=== PATIENT | male | born 1960 | race Caucasian/White ===

== ENCOUNTER → 2017-09-27 13:11 | Outpatient (CLI) | payer BC, SELFPAY ==
--- NOTE | 2017-09-27 13:18 | XR_ITS ---
XR chest 2V COMPARISON: None HISTORY: Cough suspect pneumonia TECHNIQUE: PA and lateral chest FINDINGS: The lung bhardwaj are well expanded and appear clear of infiltrate. There is borderline cardio megaly without failure. Is no pleural fluid. IMPRESSION: Borderline cardio megaly, no acute chest pathology noted
== END ==
PROVIDERS: PCP Internal Medicine Adolescent Medicine; Visit Provider Internal Medicine Adolescent Medicine
DX: J18.0 Bronchopneumonia, unspecified organism (principal)
CPT/HCPCS: 71046

== ENCOUNTER → 2018-08-02 13:32 | Outpatient (CLI) | payer BC, SELFPAY ==
--- NOTE | 2018-08-02 | NVE_ITS ---
Venous Exam Indications: 729.5 Pain in limb. Patient had a TIA several years ago and has taken Aggrenox since daily. IMPRESSIONS No evidence of deep or superficial vein thrombosis involving the left lower extremity History: Risk factors: Hypertension. Obese. Left lower extremity venous duplex evaluation. Doppler flow study including spectral analysis, color and conteh scale imaging. Location: Vascular laboratory. Patient status: Outpatient. CRITICAL FINDINGS - Reported to: Dr. Riojas - Read back and verified. - 08/02/18 - 14:05 - LLE negative for DVT Tables: Venous flow and imaging: + +-------+ + Location Overall Flow properties + +-------+ + Left common femoral Patent Normal phasicity; spontaneous; normal augmentation; compressible + +-------+ + Left saphenofemoral junction Patent Compressible + +-------+ + Left profunda femoral Patent Compressible + +-------+ + Left femoral Patent Normal phasicity; spontaneous; normal augmentation; compressible + +-------+ + Left greater saphenous Patent Normal phasicity; spontaneous; normal augmentation; compressible + +-------+ + Left popliteal Patent Normal phasicity; spontaneous; normal augmentation; compressible + +-------+ + Left posterior tibial Patent Compressible + +-------+ + Left peroneal Patent Compressible + +-------+ + Left gastrocnemius Patent Compressible + +-------+ + Left soleal Patent Compressible + +-------+ + (Report amended ) Electronically signed by: Skyler Nguyễn [id number]
== END ==
PROVIDERS: PCP Internal Medicine Adolescent Medicine; Visit Provider Internal Medicine Adolescent Medicine
DX: M79.605 Pain in left leg (principal)
CPT/HCPCS: 93971

== ENCOUNTER → 2020-06-25 09:52 | Outpatient (CLI) | payer BC, SELFPAY ==
[2020-06-25 10:33] LABS: Basophils % 0.5 % (0.1-2.0); Eosinophils # 0.1 K/mm3 (0.0-0.4); Eosinophils % 1.3 % (0.1-12.0); Hematocrit 48.3 % (42.0-52.0); Hemoglobin 16.4 g/dL (14.1-18.0); Lymphocytes # 2.9 K/mm3 (0.7-4.5); Lymphocytes % 45.7 % (10-50); Mean Corpuscular HGB Conc 33.9 g/dL (31.8-35.4); Mean Corpuscular Hemoglobin 32.7 pg (27.0-31.2); Mean Corpuscular Volume 96.3 fl (80-94); Mean Platelet Volume 7.7 fl (7.4-10.4); Monocytes # 0.4 K/mm3 (0.1-1.0); Monocytes % 6.1 % (1.7-9.3); Neutrophils # 2.9 K/mm3 (1.8-7.8); Neutrophils % 46.4 % (37.0-80.0); Platelet Count 243 K/mm3 (142-424); Red Blood Count 5.02 M/mm3 (4.60-6.20); Red Cell Distribution Width 13.7 % (11.5-17.5); White Blood Count 6.3 K/mm3 (4.8-10.8)
[2020-06-25 12:03] LABS: Alanine Aminotransferase 43 U/L (12-78); Albumin Level 4.4 g/dl (3.5-5.0); Albumin/Globulin Ratio 1.8 (1.1-1.8); Alkaline Phosphatase 46 U/L (38-126); Anion Gap 9.5 mEq/L (5-15); Aspartate Amino Transferase 27 U/L (17-59); Bilirubin,Total 1.2 mg/dl (0.2-1.3); Blood Urea Nitrogen 20 mg/dl (9-20); Calcium 11.2 mg/dl (8.4-10.2); Carbon Dioxide 33 mmol/L (22.0-30.0); Chloride 102 mmol/L (98-107); Estimated Glomerular Filt Rate 62 ml/min (>60); GFR (African American) 75 ML/MIN (>60); Globulin 2.4 g/dL (1.3-3.2); Glucose 67 mg/dl (74-100); Potassium 4.5 mmoL/L (3.5-5.1); Sodium 140 mmol/L (136-145); Total Protein,Serum 6.8 g/dl (6.3-8.2)
[2020-06-25 12:16] LABS: Intact Parathyroid Hormone 106.9 pg/mL (7.5-53.5)
[2020-06-27 14:35] LABS: Calcium, Ionized 6.3 mg/dL (4.5-5.6)
== END ==
PROVIDERS: Visit Provider Internal Medicine Adolescent Medicine
DX: E83.52 Hypercalcemia (principal)
CPT/HCPCS: 36415; 80053; 82330; 83970; 85025

== ENCOUNTER → 2020-07-10 09:26 | Outpatient (CLI) | payer BC, SELFPAY ==
--- NOTE | 2020-07-10 09:32 | XR_ITS ---
PROCEDURE: XR DEXA AXIAL SKELETON CLINICAL HISTORY: HYPERPARATHYROIDISM COMPARISON: No exams were available for comparison FINDINGS: The right hip BMD is 0.913 with a T-score of -0.1. The left hip BMD is 0.929 with a T-score of 0.0. The lumbar spine BMD is 1.127 with a T-score of 0.3. The left forearm BMD is 0.806 with a T-score of -0.2 IMPRESSION: This patient is considered normal according to the World Health Organization criteria. Fracture risk is low. Based on these results a follow-up exam is recommended in 2 year. Dictated by: Skyler Nguyễn MD 07/10/2020 20:19 Skyler Nguyễn MD in [facility] 07/11/2020 07:24
== END ==
PROVIDERS: PCP Internal Medicine Adolescent Medicine; Visit Provider Internal Medicine Adolescent Medicine
DX: E21.3 Hyperparathyroidism, unspecified (principal)
CPT/HCPCS: 77080

== ENCOUNTER → 2020-08-18 20:11 | Outpatient (CLI) | payer BC, SELFPAY ==
[2020-08-18 20:21] LABS: Basophils % 0.7 % (0.1-2.0); Eosinophils # 0.1 K/mm3 (0.0-0.4); Eosinophils % 1.6 % (0.1-12.0); Hematocrit 50.5 % (42.0-52.0); Hemoglobin 16.3 g/dL (14.1-18.0); Lymphocytes # 2.5 K/mm3 (0.7-4.5); Lymphocytes % 49.9 % (10-50); Mean Corpuscular HGB Conc 32.3 g/dL (31.8-35.4); Mean Corpuscular Hemoglobin 31.3 pg (27.0-31.2); Mean Corpuscular Volume 96.9 fl (80-94); Mean Platelet Volume 9.9 fl (7.4-10.4); Monocytes # 0.3 K/mm3 (0.1-1.0); Monocytes % 5.4 % (1.7-9.3); Neutrophils # 2.1 K/mm3 (1.8-7.8); Neutrophils % 42.4 % (37.0-80.0); Platelet Count 275 K/mm3 (142-424); Red Blood Count 5.21 M/mm3 (4.60-6.20); Red Cell Distribution Width 13.2 % (11.5-17.5)
[2020-08-18 22:05] LABS: Chloride 103 mmol/L (98-107); Potassium 4.7 mmoL/L (3.5-5.1); Sodium 141 mmol/L (136-145)
[2020-08-18 22:08] LABS: Alanine Aminotransferase 57 U/L (12-78); Albumin Level 4.8 g/dl (3.5-5.0); Albumin/Globulin Ratio 1.7 (1.1-1.8); Alkaline Phosphatase 79 U/L (38-126); Anion Gap 10.7 mEq/L (5-15); Aspartate Amino Transferase 37 U/L (17-59); Bilirubin,Total 1.3 mg/dl (0.2-1.3); Blood Urea Nitrogen 16 mg/dl (9-20); Calcium 11.9 mg/dl (8.4-10.2); Carbon Dioxide 32 mmol/L (22.0-30.0); Estimated Glomerular Filt Rate 69 ml/min (>60); GFR (African American) 83 ML/MIN (>60); Globulin 2.9 g/dL (1.3-3.2); Glucose 88 mg/dl (74-100); Total Protein,Serum 7.7 g/dl (6.3-8.2)
== END ==
PROVIDERS: Visit Provider Internal Medicine Adolescent Medicine
DX: I10 Essential (primary) hypertension (principal); E21.3 Hyperparathyroidism, unspecified
CPT/HCPCS: 80053; 85025

== ENCOUNTER → 2021-01-04 11:59 | Outpatient (CLI) | payer BC, SELFPAY ==
[2021-01-04 13:01] LABS: Chol/HDL Ratio 3.9 (1-3.5); Cholesterol 158 mg/dl (140-200); HDL Cholesterol 41 mg/dl (40-60); Triglycerides 175 mg/dl (30-150); VLDL Cholesterol 35 mg/dL (0-40)
[2021-01-04 13:13] LABS: Direct LDL Cholesterol 88.39 mg/dL (100-129)
[2021-01-04 13:16] LABS: Hemoglobin A1C 5.2 % (4.0-6.0)
[2021-01-04 13:19] LABS: Free Thyroxine Index 2.3 ug/dL (5.93-13.13); Triiodothryronine (T3) Uptake 33 % (23.5-40.5)
[2021-01-04 13:33] LABS: Thyroid Stimulating Hormone 1.82 uIU/mL (0.465-4.68)
[2021-01-04 13:55] LABS: Vitamin B12 > 1000 pg/mL (239-931)
== END ==
PROVIDERS: Visit Provider Internal Medicine Adolescent Medicine
DX: R55 Syncope and collapse (principal); H53.2 Diplopia
CPT/HCPCS: 36415; 80061; 82607; 83036; 84436; 84443; 84479; 93270

== ENCOUNTER → 2021-01-15 07:53 | Outpatient (CLI) | payer BC, SELFPAY ==
--- NOTE | 2021-01-15 | CA_ITS ---
APPROVED REPORT EXAM: Comprehensive 2D, Doppler, and color-flow Echocardiogram Audit Spec: Radha Block, RT(R) Ht: 5 ft 9 in Wt: 255lbs BSA: 2.29 BP: 137/93 mmHg Indications: Edema, HTN, hyperlipidemia, family hx of HD, syncope Echo Enhancing Agent Indication: Rule out Shunt Agent(s) / Amount(s) Used: Agitated Saline 20 cc 2D Dimensions LVOT 1.93 cm (M/F) 1.5-2.5 LA Volume 27.90 mL LA Volume Index 12.18 mL/m2 (M/F) 16-34 M-Mode Dimensions RVDd 3.10 cm (0.9-2.6) LA Diam 3.92 cm (1.9-4.0) LVDd 4.08 cm (3.5-5.7) Ao Diam 2.98 cm (2.0-3.7) LVDs 2.93 cm (3.5-5.7) IVSd 1.19 cm (0.6-1.1) PWd 1.02 cm (0.6-1.1) EF (Teich) 55.00% FS 28.20% EDV (Teich) 73.40 mL ESV (Teich) 33.00 mL LV Diastology E Decel Time 223.00 (160-240 msec) E/A Ratio 0.9 MED E' 8.80 (< 7 cm/sec) E'/MED E' Ratio 7.90 (>14) LAT E' 11.00 (<10 cm/sec) E/LAT E' Ratio 6.32 (>14) Aortic Valve LVOT Max 132.00 (70-110 cm/s) LVOT VTI 27.71 cm AoV Peak Edgardo. 136.00 (50-130 cm/s) AI PHT 906.00 ms AO Peak GR. 7.40 mmHg AO Mean GR. 3.80 (<5 mmHg) AO VTI 28.05 (18-25 cm) DION (VTI) 2.89 (2.5-4.5 cm2) Mitral Valve MV E Max Edgardo. 69.00 (40-130 cm/s) MV A Velocity 73.00 (40-130 cm/s) E/A Ratio 0.95 MV Decel. Time 223.00 (160-240 ms) MV PHT 65.00 ms Left Ventricle Atrium is mildly enlarged, left ventricle is normal size, mild concentric left ventricular hypertrophy, visually estimated ejection fraction 55% with no regional wall motion abnormality, diastolic parameters are inconclusive. Right Ventricle Right atrium and right ventricle mildly enlarged with normal contractility. Atria Intra-atrial septum is intact, there is no flow across the interatrial septum, agitated saline contrast study fails to identify intracardiac shunt. Aortic Valve Aortic valve is minimally thickened and fibrosed, there is no aortic stenosis, there is mild aortic insufficiency. Mitral Valve Mitral valve leaflets are minimally thickened, there is mild mitral regurgitation. Tricuspid Valve Tricuspid valve grossly normal, there is mild tricuspid regurgitation, tricuspid regurgitation jet velocity is inadequate for calculation of the right ventricular systolic pressure. Pulmonic Valve Pulmonic valve is poorly visualized. Great Vessels Aortic root is normal size. Pericardium No significant pericardial effusion noted. Conclusion 1. Mild biatrial enlargement, normal left ventricular size, mild concentric left ventricular hypertrophy, visually estimated ejection fraction 55% with no regional wall motion abnormality, diastolic parameters are inconclusive. 2. Mildly enlarged right ventricle with normal contractility. 3. Thickened and calcified aortic valve without aortic stenosis, there is mild aortic insufficiency. 4. Agitated saline contrast study fails to identify intracardiac shunt. 5. No significant pericardial effusion noted. Electronically signed by : Felton Love, 01/15/2021 11:24:44
--- NOTE | 2021-01-15 08:55 | MR_ITS ---
PROCEDURE: MR ANGIO NECK WO CON CLINICAL INDICATION: PRESYNCOPE, DIPLOPIA COMPARISON: No exams were available for comparison TECHNIQUE: MR angiography of the neck acquired with the [id number] sequences.. FINDINGS: Bilateral common carotid, and internal carotid arteries are patent through its entire extent without evidence of narrowing. The aortic arch is not visualized on the current study. Dominant right vertebral artery is noted. The left vertebral artery is slightly smaller in caliber, likely developmental. The visualized V1, V2 and V3 segments of the bilateral vertebral arteries demonstrate no evidence of occlusion. IMPRESSION: Unremarkable MR angiogram of the neck. Dictated by: Dinah Calderon 01/15/2021 11:19 Dinah Calderon in [facility] 01/15/2021 11:19
--- NOTE | 2021-01-15 08:55 | MR_ITS ---
PROCEDURE: MR HEAD/BRAIN WO CON CLINICAL INDICATION: PRESYNCOPE, DIPLOPIA COMPARISON: No exams were available for comparison TECHNIQUE: Multiplanar, multisequence MRI brain performed with contrast. FINDINGS: No restricted diffusion is present to suggest an acute infarct.There is no space-occupying or enhancing mass lesion and no abnormal fluid collection.There is no evidence of hemorrhage. Ventricles: The Ventricles are within normal limits for size, configuration, and symmetry. Volume: Brain parenchymal volume is appropriate for age. Few scattered periventricular and subcortical white matter hyper intensities are noted bilaterally. The largest of these in the right frontal white matter is noted measuring up to 9 millimeters. No evidence of pericallosal T2 and FLAIR hyperintensities are noted. Osseous: Osseous structures are unremarkable. Sinuses: The paranasal sinuses are clear bilaterally. Mastoids: Mastoid air cells are clear. IMPRESSION: No acute intracranial process. Few scattered periventricular and subcortical white matter T2 and FLAIR hyperintensities. The findings are nonspecific and the differential diagnosis would include microvascular changes, demyelinating and dysmyelinating disorders including multiple sclerosis. Dictated by: Dinah Calderon 01/15/2021 11:09 Dinah Calderon in [facility] 01/15/2021 11:09
== END ==
PROVIDERS: PCP Internal Medicine Adolescent Medicine; Visit Provider Internal Medicine Adolescent Medicine
DX: R55 Syncope and collapse (principal); R00.2 Palpitations; H53.2 Diplopia
CPT/HCPCS: 70547; 70551; 93306

== ENCOUNTER → 2021-08-30 14:58 | Outpatient (CLI) | payer BC, SELFPAY | PROVIDERS: Visit Provider Internal Medicine | DX: Z01.812 Encounter for preprocedural laboratory examination (principal); Z11.52 Encounter for screening for COVID-19; Z12.11 Encounter for screening for malignant neoplasm of colon; Z86.010 Personal history of colon polyps | CPT/HCPCS: C9803; U0003; U0005 ==

== ENCOUNTER 2021-09-01 08:21 | Day surgery (SDC) | payer BC, SELFPAY ==
[2021-08-30 13:32] VITALS: BMI 39.9
[2021-09-01 08:55] VITALS: BP 158/90; PULSE 57; RESP 18; TEMP 36.4; O2SAT 98
[2021-09-01 09:52] VITALS: O2SAT 97
--- NOTE | 2021-09-01 10:16 | HMH.SCOPE ---
- Procedure: Date: 09/01/21 Patient Date of :: 1960 Procedure Performed:: Colonoscopy Indications:: The patient is a 60 year old who presents for surveillance colonoscopy for a history of colon polyps. He has a past medical history of renal cancer. Performing Provider:: Josh Cox MD Referring Provider:: Chetan Acosta MD Sedation:: See RN notes Procedure:: After placing the patient in the left lateral decubitus position, the colonoscopy was gently inserted into the rectum and under direct visualization advanced to the cecum which was identified by transillumination in the right lower quadrant, identification of the ileocecal valve, appendiceal orifice, and cecal strap. Color, texture, mucosa, and anatomy of the colon were carefully examined with the scope. Findings:: Anal canal: normal Rectum: Circumferential internal hemorrhoids Sigmoid colon: Pedunculated polyp 8 mm in size. Removed with snare cautery polypectomy Descending colon: normal without polyps or inflammatory changes Splenic flexure: normal Transverse colon: normal without polyps or inflammatory changes Hepatic flexure: normal Ascending colon: normal without polyps or inflammatory changes Cecum: Sessile polyp 4 mm in size. Removed with cold snare polypectomy Terminal ileum: not visualized Recommendations:: Await pathology results Repeat colonoscopy in 3 years Complications:: None Estimated blood obtained (mL): 0
[2021-09-01 10:20] VITALS: BP 122/74; PULSE 59; RESP 16; TEMP 36.3; O2SAT 96
[2021-09-01 10:30] VITALS: BP 101/86; PULSE 60; RESP 18; TEMP 36.3; O2SAT 96
[2021-09-01 10:40] VITALS: BP 135/69; PULSE 50; RESP 18; TEMP 36.3; O2SAT 96
[2021-09-01 10:55] VITALS: BP 128/84; PULSE 53; RESP 18; TEMP 36.3; O2SAT 96
== END 2021-09-01 10:55 | disposition home or self-care (01) ==
LOC: OUTP 08:22
PROVIDERS: PCP Internal Medicine Adolescent Medicine; Visit Provider Internal Medicine
PROC: 0DJD8ZZ Inspection of Lower Intestinal Tract, Via Natural or Artificial Opening Endoscopic (ICD-10-PCS; CPT 45378; principal; 2021-09-01 09:30)
DX: Z12.11 Encounter for screening for malignant neoplasm of colon (principal); Z86.010 Personal history of colon polyps; K63.5 Polyp of colon; I10 Essential (primary) hypertension; Z85.53 Personal history of malignant neoplasm of renal pelvis; Z86.73 Personal history of transient ischemic attack (TIA), and cerebral infarction without residual deficits; Z88.8 Allergy status to other drugs, medicaments and biological substances; Z79.899 Other long term (current) drug therapy
CPT/HCPCS: 45385

== ENCOUNTER → 2023-05-13 10:06 | Outpatient (CLI) | payer BC, SELFPAY ==
[2023-05-13 10:48] LABS: Basophils # 0.1 K/mm3 (0-0.2); Basophils % 0.8 % (0.1-2.0); Eosinophils # 0.4 K/mm3 (0.0-0.4); Hemoglobin 16.7 g/dL (14.1-18.0); Lymphocytes # 2.4 K/mm3 (0.7-4.5); Lymphocytes % 39.4 % (10-50); Mean Corpuscular HGB Conc 35.5 g/dL (31.8-35.4); Mean Corpuscular Hemoglobin 32.6 pg (27.0-31.2); Mean Corpuscular Volume 91.8 fl (80-94); Mean Platelet Volume 8.1 fl (7.4-10.4); Monocytes # 0.3 K/mm3 (0.1-1.0); Monocytes % 5.5 % (1.7-9.3); Neutrophils # 2.9 K/mm3 (1.8-7.8); Neutrophils % 47.3 % (37.0-80.0); Platelet Count 227 K/mm3 (142-424); Red Blood Count 5.12 M/mm3 (4.60-6.20); Red Cell Distribution Width 13.9 % (11.5-17.5); White Blood Count 6.1 K/mm3 (4.8-10.8)
[2023-05-13 11:13] LABS: Hemoglobin A1C 5.4 % (4.0-6.0)
[2023-05-13 12:17] LABS: Alanine Aminotransferase 87 U/L (12-78); Albumin Level 4.6 g/dl (3.5-5.0); Albumin/Globulin Ratio 1.8 (1.1-1.8); Alkaline Phosphatase 45 U/L (38-126); Anion Gap 15.2 mEq/L (5-15); Aspartate Amino Transferase 56 U/L (17-59); Bilirubin,Total 1.1 mg/dl (0.2-1.3); Blood Urea Nitrogen 14 mg/dl (9-20); Calcium 9.4 mg/dl (8.4-10.2); Carbon Dioxide 29 mmol/L (22.0-30.0); Chloride 101 mmol/L (98-107); Chol/HDL Ratio 6.1 (1-3.5); Cholesterol 194 mg/dl (140-200); Estimated Glomerular Filt Rate 62 ml/min (>60); GFR (African American) 74 ML/MIN (>60); Globulin 2.5 g/dL (1.3-3.2); Glucose 82 mg/dl (74-100); HDL Cholesterol 32 mg/dl (40-60); Potassium 4.2 mmoL/L (3.5-5.1); Sodium 141 mmol/L (136-145); Total Protein,Serum 7.1 g/dl (6.3-8.2); Triglycerides 239 mg/dl (30-150); VLDL Cholesterol 48 mg/dL (0-40)
[2023-05-13 12:28] LABS: Direct LDL Cholesterol 111.88 mg/dL (100-129)
[2023-05-13 12:32] LABS: 25-OH Vitamin D, Total 25.4 ng/mL (30-100)
[2023-05-13 12:48] LABS: Thyroid Stimulating Hormone 1.91 uIU/mL (0.465-4.68)
[2023-05-13 13:07] LABS: Vitamin B12 971 pg/mL (239-931)
== END ==
PROVIDERS: PCP Internal Medicine Adolescent Medicine; Visit Provider Internal Medicine Adolescent Medicine
DX: I10 Essential (primary) hypertension (principal); E78.5 Hyperlipidemia, unspecified; E55.9 Vitamin D deficiency, unspecified; G60.9 Hereditary and idiopathic neuropathy, unspecified
CPT/HCPCS: 36415; 80053; 80061; 82306; 82607; 83036; 84443; 85025

== ENCOUNTER 2024-04-30 06:08 | Day surgery (SDC) | payer BC, SELFPAY ==
[2024-04-23 13:18] VITALS: BMI 42.0
--- NOTE | 2024-04-30 07:13 | EXP.ANES.CKL ---
[facility] Disclaimer: The information contained in this section may have been updated after the patient was seen, as this information can be updated by other users. Medical History Glaucoma Hyperlipidemia Hypertension Surgical History History of parathyroid surgery Family History Other Family history of hypertension Family history of myocardial infarction Social History Smoking Status: Never smoker alcohol intake: never substance use type: denies use current occupational status: employed and retired Travel in the last 8 weeks: None household members: spouse housing: house current occupational exposures/hazards: No caffeine: Yes [facility] Anesthesia Checklist Patient Identification Patient Identification: Arm Band and Verbal (Name & ) Structural Data Admitted From: Home Planned Operative Procedure/s: Colonoscopy Consent for Planned Operative Procedure(s) Verified: Yes Verified Documents: Surgical Consent and History and Physical NPO Status Verified Time NPO: 02:00 Chart Verification Results Verified: CBC and BMP Additional verifications Patient : No Anesthesia Reactions: No Cardiovascular Assessment Heart Sounds: S1 & S2 Pulse Rhythm: Irregular Peripheral Edema: No Airway Assessment Mallampati Score:: Class II C-Spine Mobility Assessed: Yes (FROM demonstrated) TMJ Mobility Assessed: Yes Dentition: Good Dentition (Nothing loose per pt.) Neurological Assessment Level of Consciousness: Awake, Alert, Appropriate and Follows Commands Hx Seizures: No Numbness or tingling in extremities: No Anesthesia Plan Anesthesia Risk discussed: Yes Anesthesia Plan: Verified ASA Class: III Anesthesia Type: MAC
--- NOTE | 2024-04-30 07:13 | HMH.SCOPE ---
Procedure: Date: 04/30/24 Patient Date of :: 1960 Procedure Performed:: Colonoscopy with polypectomy Indications:: History of colon polyps Note: Colonoscopy in August 2021 (Dr. Cox) revealed hemorrhoids, as well as, polyps of the cecum and sigmoid colon. Performing Provider:: Martinez Vail MD Referring Provider:: . Sedation:: Monitored anesthesia care Procedure:: After informed consent was obtained the patient was taken to the endoscopy suite. Sedation ensued after the patient was transferred to the left lateral decubitus position. Pulse, blood pressure, and oxygen saturation were monitored throughout the procedure. Digital rectal exam revealed no significant abnormality. The colonoscope was placed in position. The entire colon was evaluated. The colonoscope was carefully removed and the patient was transferred to recovery in stable condition. Please see findings and specimens below for detail. Findings:: Bowel preparation relatively poor Fairly profound lack of relaxation Hepatic flexure polyp Specimens:: Hepatic flexure polyp (cold snare) Recommendations:: Timing of repeat colonoscopy is pending pathology but will likely be between 2-3 years with extended bowel preparation. Consider gastroenterology consultation regarding possible chronic constipation. If gastroenterology consultation completed his next colonoscopy will be deferred to their service. Complications:: No immediate Estimated blood obtained (mL): 1 Colonoscopy Component Colonoscopy Component Was a colonoscopy performed during today's procedure?: Yes Recommended follow up colonoscopy of at least 10 years?: No If no, follow up colonoscopy recommended in ___ years?: (See above) Reason for not recommending >/= 10 yr follow-up interval?: (See above)
[2024-04-30 07:14] VITALS: BP 168/97; PULSE 60; RESP 16; TEMP 36.1; O2SAT 97
[2024-04-30] MEDS: LACTATED RINGERS 1000ML 1,000 ML 25 ML IV (07:18)
[2024-04-30 07:25] VITALS: O2SAT 99
[2024-04-30 07:59] VITALS: BP 142/84; PULSE 71; RESP 16; TEMP 36.6; O2SAT 91
[2024-04-30 08:09] VITALS: BP 145/80; PULSE 76; RESP 16; O2SAT 96
[2024-04-30 08:19] VITALS: BP 119/81; PULSE 75; RESP 16; O2SAT 96
[2024-04-30 08:29] VITALS: BP 115/63; PULSE 73; RESP 16; O2SAT 95
== END 2024-04-30 08:32 | disposition home or self-care (01) ==
PROVIDERS: PCP Internal Medicine Adolescent Medicine; Visit Provider Surgery
PROC: 0DJD8ZZ Inspection of Lower Intestinal Tract, Via Natural or Artificial Opening Endoscopic (ICD-10-PCS; CPT 45385; principal; 2024-04-30 07:30)
DX: K63.5 Polyp of colon; Z86.0100 Personal history of colon polyps, unspecified
CPT/HCPCS: 45385; J2704; J7120